=== PATIENT | male | born 1985 | race Two or more races ===

== ENCOUNTER 2018-10-25 22:12 | Emergency (ER) | payer OTHER ==
[~2018-10-25] VITALS: Ht 175.3 cm; Wt 74.8 kg
[2018-10-25 22:27] VITALS: BP 115/74
== END 2018-10-26 01:04 | disposition home or self-care (01) ==
LOC: ER 22:12
DX: S90.122A Contusion of left lesser toe(s) without damage to nail, initial encounter (principal); W22.8XXA Striking against or struck by other objects, initial encounter; Y93.89 Activity, other specified; Y99.8 Other external cause status; Y92.89 Other specified places as the place of occurrence of the external cause
CPT/HCPCS: 73630